=== PATIENT | female | born 1945 | race Caucasian/White ===

== ENCOUNTER 2016-08-06 18:02 | Emergency (ER) | payer BC, MEDICARE ==
[2016-08-06 18:18] LABS: BASOPHILS % (AUTO) 1 % (0-3); EOSINOPHILS % (AUTO) 4 % (0-9); HEMATOCRIT 35 % (35-47); MEAN CORPUSCULAR HGB CONC 34.3 gm/dl (32.0-36.0); MONOCYTES % (AUTO) 6.1 % (0-12); NEUTROPHILS % (AUTO) 64.3 % (37-80)
[2016-08-06 18:36] LABS: CALCIUM 8.8 mg/dl (8.5-10.1); GLOM FILT RATE 60 mL/min (>60); MAGNESIUM 1.6 mg/dl (1.8-2.4); SODIUM 136 mMol/L (136-145)
[2016-08-06 18:39] LABS: MEAN CORPUSCULAR VOLUME 78 fL (81-99)
[2016-08-06 18:48] VITALS: TEMP 96.3
[2016-08-06] MEDS ORDERED: PANTOPRAZOLE SODIUM 40 MG/10 ML PDS ONE (18:51)
[2016-08-06] MEDS ORDERED: PANTOPRAZOLE SODIUM 40 MG/10 ML PDS IV ONE (18:58)
[2016-08-06] MEDS ORDERED: SODIUM CHLORIDE 0.9% 1000ML 1,000 ML IV ONE (19:15)
[2016-08-06 20:35] VITALS: BP 148/83; PULSE 74; RESP 17; O2SAT 98
== END 2016-08-06 20:23 | disposition home or self-care (01) ==
LOC: ED 18:02
DX: R55 Syncope and collapse (principal); E86.0 Dehydration
CPT/HCPCS: 36415; 80048; 83735; 84100; 84484; 85025; 93005; 99285